=== PATIENT | female | born 1975 | race Caucasian/White ===

== ENCOUNTER 2022-07-07 14:50 | Outpatient (CLI) | payer OTHER | END 2022-07-07 14:51 | disposition home or self-care (01) | LOC: CSHMAMMO 14:50 | PROVIDERS: ATTEND Physician Assistant | DX: Z12.31 Encounter for screening mammogram for malignant neoplasm of breast (principal) | CPT/HCPCS: 77063; 77067 ==

== ENCOUNTER 2022-07-18 06:39 | Day surgery (SDC) | payer OTHER ==
[2022-07-17 10:56] VITALS: BMI 29.8
[2022-07-18] MEDS ORDERED: PROPOFOL 0 ML ONE (08:32)
[2022-07-18] MEDS ORDERED: Lidocaine 2% MPF 10 ML AMP (For Epidural Use) ONE (08:32)
[2022-07-18] MEDS ORDERED: Fentanyl 100 MCG/2 ML VIAL ONE (08:47)
[2022-07-18] MEDS ORDERED: PROPOFOL 60 ML ONE (08:48)
== END 2022-07-18 09:45 | disposition home or self-care (01) ==
LOC: CSHSDC 06:39
PROVIDERS: ATTEND Internal Medicine Gastroenterology
PROC: 0DJD8ZZ Inspection of Lower Intestinal Tract, Via Natural or Artificial Opening Endoscopic (ICD-10-PCS; principal; 2022-07-18)
PROC: 0DB68ZX Excision of Stomach, Via Natural or Artificial Opening Endoscopic, Diagnostic (ICD-10-PCS; principal; 2022-07-18)
DX: K31.9 Disease of stomach and duodenum, unspecified (principal); K29.70 Gastritis, unspecified, without bleeding; K29.80 Duodenitis without bleeding; K59.89 Other specified functional intestinal disorders; Z87.19 Personal history of other diseases of the digestive system; R19.7 Diarrhea, unspecified; K59.00 Constipation, unspecified; R14.0 Abdominal distension (gaseous); F41.9 Anxiety disorder, unspecified; F32.A Depression, unspecified; E03.9 Hypothyroidism, unspecified; K64.4 Residual hemorrhoidal skin tags; K57.30 Diverticulosis of large intestine without perforation or abscess without bleeding; Z88.5 Allergy status to narcotic agent
CPT/HCPCS: 88305; J2704; J3010